=== PATIENT | male | born 1995 | race African-American/Black ===

== ENCOUNTER 2022-04-27 18:29 | Emergency (ER) | payer BC ==
[~2022-04-27] VITALS: Ht 172.7 cm; Wt 81.6 kg
--- NOTE | 2022-04-27 21:07 | NUR ---
Dr Nair into eval patient.
[2022-04-27] MEDS ORDERED: MAG HYDROX/AL HYDROX/SIMETH 30 ML LIQUID UDC PO ONE (21:15)
[2022-04-27] MEDS ORDERED: LIDOCAINE VISCUS 2% 15 ML UDC MM ONE (21:15)
[2022-04-27] MEDS ORDERED: LIDOCAINE VISCUS 2% 15 ML UDC ONE (21:23)
[2022-04-27] MEDS ORDERED: MAG HYDROX/AL HYDROX/SIMETH 30 ML LIQUID UDC ONE (21:23)
[2022-04-27 21:28] LABS: HEMATOCRIT 43.3 % (36.7-47.1); MEAN CORPUSCULAR VOLUME 92.4 fL (73.0-96.2); PLATELET COUNT (AUTO) 245 K/uL (152-348)
[2022-04-27 21:36] LABS: POTASSIUM 3.8 mmol/L (3.5-5.1)
[2022-04-27 21:42] LABS: BILIRUBIN,DIRECT 0.1 mg/dL (0.0-0.2); BILIRUBIN,TOTAL 0.5 mg/dL (0.2-1.0); TOTAL PROTEIN, SERUM 8.2 g/dL (6.4-8.2)
--- NOTE | 2022-04-27 23:15 | NUR ---
Patient eloped from facility. ER physician notified.
== END 2022-04-28 00:15 | disposition left against medical advice (07) ==
LOC: ER 18:36
DX: R10.13 Epigastric pain (principal)
CPT/HCPCS: 36415; 74021; 83690; 85025; A4663